=== PATIENT | female | born 1940 | race Caucasian/White ===

== ENCOUNTER → 2016-11-24 | Outpatient (CLI) | payer MEDICARE, OTHER ==
[~2016-11-24] MED LIST: ASPI-558 PO; HYDR-2164 PO; INSU100V20 SQ; INSU100V28 SQ; LISI-127 PO; METO-68 PO; PRAV40TA46 PO; [UNRECOGNIZED DRUG - CODE] PO
--- NOTE | 2016-11-24 09:42 | DI ---
Indication: ITS.REASON: R94.5 ELEVATED LIVER FUNCTION TESTS PROCEDURE: US LIVER (HEPATIC): Encounter: Initial Comparison: None Technique: Grayscale and color Doppler sonographic imaging of the right upper quadrant of the abdomen was performed. Findings: Hepatic parenchyma is sonographically dense without evidence for focal mass. The gallbladder shows multiple gallstones without wall thickening, pericholecystic fluid or sonographic Ary's sign. Both the intra and extrahepatic biliary system are of normal caliber with the common duct measuring 5 mm in dimension. Visualized portions of the head and body of the pancreas are unremarkable. The right kidney is present without collecting system dilatation. The right kidney measures 10.2 cm in length. Impression: 1. Abnormal density of the liver could be due to cirrhosis or steatosis. 2. Cholelithiasis without evidence of acute cholecystitis. .
== END ==
LOC: IMA 08:01
PROVIDERS: ATTEND Family Medicine
DX: R94.5 Abnormal results of liver function studies (principal); K80.20 Calculus of gallbladder without cholecystitis without obstruction; R93.2 Abnormal findings on diagnostic imaging of liver and biliary tract